=== PATIENT | female | born 1980 | race Two or more races ===

== ENCOUNTER 2024-09-22 23:38 | Emergency (ER) | payer OTHER, SELFPAY ==
[2024-09-22 23:45] VITALS: BP 138/85; PULSE 99; RESP 18; TEMP 37.1; O2SAT 98; BMI 39.8
[2024-09-23 03:00] VITALS: BP 128/84; PULSE 100; RESP 19; TEMP 36.6; O2SAT 98
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
[2024-09-23] MEDS: IBUPROFEN TAB 600 MG TABLET PO (04:02)
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
== END 2024-09-23 06:24 | disposition home or self-care (01) ==
PROVIDERS: Emergency Provider Emergency Medicine
DX: S13.9XXA Sprain of joints and ligaments of unspecified parts of neck, initial encounter (principal); S00.83XA Contusion of other part of head, initial encounter; Y04.0XXA Assault by unarmed brawl or fight, initial encounter
CPT/HCPCS: 70486; 72125; 81025; 99283; A9270